=== PATIENT | female | born 1950 | race Native Hawaiian/Other Pacific Islander ===

== ENCOUNTER 2018-08-30 04:33 | Emergency (ER) | payer OTHER, MEDICARE ==
[~2018-08-30] VITALS: Ht 167.6 cm; Wt 81.6 kg
[2018-08-30 05:34] LABS: PLATELET COUNT 355 K/uL (152-353)
[2018-08-30 06:08] VITALS: BP 146/71; TEMP 97.9
== END 2018-08-30 06:12 | disposition home or self-care (01) ==
LOC: ED 04:33
PROVIDERS: Student in an Organized Health Care Education/Training Program
DX: N13.2 Hydronephrosis with renal and ureteral calculous obstruction (principal)
CPT/HCPCS: 36415; 80053; 81000; 85027; 96374; 96375; 99284; J1885; J2405